=== PATIENT | male | born 1995 | race Caucasian/White ===

== ENCOUNTER 2021-06-14 13:52 | Emergency (ER) | payer OTHER ==
[2021-06-14 14:06] VITALS: BP 137/90; PULSE 96; TEMP 99.2; BMI 25.7
== END 2021-06-14 14:44 | disposition home or self-care (01) ==
LOC: FER 13:52
DX: H93.19 Tinnitus, unspecified ear (principal)
CPT/HCPCS: 99281-25

== ENCOUNTER 2023-08-31 17:58 | Emergency (ER) | payer OTHER ==
[2023-08-31 18:13] VITALS: BP 119/82; PULSE 96; RESP 18; TEMP 98.4; BMI 27.1
[2023-08-31] MEDS ORDERED: DIPHTH,PERTUSS(ACELL),TET 0.5 ML DISP.SYRIN IM ONE (19:37)
[2023-08-31] MEDS: DIPHTH,PERTUSS(ACELL),TET 0.5 ML DISP.SYRIN IM ONE (19:40)
== END 2023-08-31 20:00 | disposition home or self-care (01) ==
LOC: FER 17:58
PROC: 3E0234Z Introduction of Serum, Toxoid and Vaccine into Muscle, Percutaneous Approach (ICD-10-PCS; principal; 2023-08-31)
DX: S60.511A Abrasion of right hand, initial encounter (principal); S80.211A Abrasion, right knee, initial encounter; W19.XXXA Unspecified fall, initial encounter
CPT/HCPCS: 90471; 90715; 99284-25